=== PATIENT | male | born 1940 | race Caucasian/White ===

== ENCOUNTER 2020-05-21 09:14 | Emergency (ER) | payer OTHER, SELFPAY ==
[2020-05-21] VITALS (47 sets, daily range): BP systolic 153–182; BP diastolic 69–126; PULSE 63–105; RESP 13–34; TEMP 37.1; O2SAT 90–98
--- NOTE | 2020-05-21 09:15 | DI.RAD_ITS ---
EXAM: XR CHEST 2V PA LATERAL CLINICAL HISTORY: possible cva, r'o acute disease. TECHNIQUE: 2D digital imaging was performed. COMPARISON: No exams were available for comparison FINDINGS: Heart size is upper normal. The mediastinum is not widened. There is density in left upper lobe region, either nodule or possibly related to the anterior aspect of the 1st rib. This can be further evaluated with apical lordotic view or CT scan. This measures a pproximately 2.5 x 2.0 cm. In the opposite-right lung there is some fullness in the right infrahilar region. No pleural effusio ns. IMPRESSION: Abnormal bilateral findings. Recommend nonportable PA and lateral views when clinically possible or chest CT scan. DATA REPOSITORY: RADIATION DOSE DELIVERED:
--- NOTE | 2020-05-21 09:15 | DI.CT_ITS ---
EXAM: CT HEAD WO CLINICAL HISTORY: slurred speech, L sided weakness, r/o acute cva. TECHNIQUE: Imaging Protocol: Axial computed tomography images with coronal and sagittal reformatted images were created and reviewed COMPARISON: CT HEAD WITHOUT CONTRAST from 03/26/2010 FINDINGS: There are no skull fractures nor fluid in the visualized paranasal sinuses. There is no evidence of intracranial hemorrhage, mass effect, or shift of midline structures. There are no extra-axial fluid collections. The ventricles are not enlarged or shifted and there is no blo od within the ventricular system nor within the basal cisterns. When compared to the 2011 study there is increased white matter hypodensity around the posterior aspe ct of the right lateral ventricle, possibly significant.. There is some periventricular hypodensity around the frontal horns of both lateral ventricles which was previously present. There is some calcification noted in the right vertebral artery at the skull base. Also mild calcifi cation with noted within the intracavernous internal carotid arteries. Small fluid level is noted in the left maxillary sinus. IMPRESSION: Compared to 2011 there is increased white matter hypodensity around the atria of the right lateral ve ntricle, most probably post ischemic, age indeterminate. Recommend follow-up MRI. Mild vascular calcifications described above. Findings and recommendations discussed with ER provider. RADIATION DOSE DELIVERED: 779.68mGy.cm Total DLP DATA REPOSITORY: All CT scans at this facility are submitted to the National Radiology Data Registry (NRDR) Dose Index Registry (DIR) with the [employer] ([employer]). RADIATION OPTIMIZATION: All CT scans at this facility use at least one of these dose optimization te chniques: automated exposure control; mA and/or kV adjustment per patient size (includes targeted exa ms where dose is matched to clinical indication); or iterative reconstruction.
--- NOTE | 2020-05-21 09:15 | RT.EKG_ITS ---
APPROVED REPORT Exam: Resting ECG Patient Location: E HR:85 bpm ECG Measurements Heart Rate 85 AXIS NH 259 P 68 QRSd 104 QRS 14 QT 375 T 207 QTc 447 Conclusion Sinus rhythm...normal P axis, V-rate 60- 99 Prolonged NH interval...NH >220, V-rate 50- 90 Anterior infarct, old...Q >40mS, abnormal ST-T, V2-V5. Less than 1mm ST depression in aVL. 1mm ST depression in I, II, V4,V6. 2mm ST depression in V5. LBBB. No STEMI. I have reviewed and interpreted ECG and agree with software generated interpretation.
--- NOTE | 2020-05-21 09:16 | ED.GENADUL_ITS ---
Discharge Plan Disposition Patient Disposition: [facility] Condition: Stable Discharge Details Clinical Impression: Acute cerebrovascular accident, Elevated troponin Primary Care Provider: [facility],[place] ED Provider: Montserrat Rodgers Home Meds and New Rx's Prescriptions: No Action potassium chloride 10 mEq Capsule, Extended Release 20 meq PO DAILY RF: 0 atorvastatin [Lipitor] 20 mg Tablet 20 mg PO DAILY RF: 0 chlorthalidone 25 mg Tablet 25 mg PO DAILY RF: 0 aspirin [Aspir-81] 81 mg Tablet,Delayed Release (Dr/Ec) 81 mg PO DAILY RF: 0 omeprazole [Prilosec] 20 mg Capsule,Delayed Release(Dr/Ec) 20 mg PO DAILY RF: 0 vitamin B complex [Super B Complex] Capsule 1 cap PO DAILY RF: 0 Fish Oil Capsule 1,000 mg PO DAILY RF: 0 Vitamin D (with calcium) 77-400 mg-unit Tablet 1 tab PO DAILY RF: 0 Discharge Data Discharge Date/Time-TO BE ENTERED AT DEPARTURE: 05/21/20 15:52 Medical Decision Making 0935 -- 79-year-old male with a history of colon cancer in remission, hypertension, hyperlipidemia presents from home after slurred speech and left arm since yesterday, with fall off couch today. Patient arrived to the ED as a potential stroke. Patient oriented to person and place, fall at 2000. Able to answer questions and follow commands. Airway intact. Patient evaluated in the camacho with left pronator drift and weakness of left upper extremity. No observable lower extremity weakness. No facial droop noted. Patient sent directly to CT. 1000 --CT head read notes compared to 2010 there is increased white matter hypodensity around the atria the right lateral ventricle, most probably postischemic, age-indeterminate, recommend follow-up on MRI. Discussed with Dr. Benjamin who recommends obtaining an MRI at this time. Recommends MRI and MRA brain without contrast. Labs reviewed. Normal white blood cell count. Troponin 0.13. EKG notes [address] depression in 1, 2, V4, V6. Less than [address] depression in aVL. [address] depression in V5. No STEMI. Discussed with [facility] cardiology who did not feel that this was an STEMI at this time as patient does not endorse any chest pain or shortness of breath. Agrees with aspirin and recommends giving Lipitor and repeat troponin and EKG. No recommendation for heparin. I was able to [facility] [address] depressions in anterolateral leads. MRI/MRA note right internal carotid artery is occluded and flow signal is evident in the right middle cerebral artery. [facility] neurology paged for transfer. Case discussed with [facility] neurology who accepts patient for transfer. Accepting physician Dr. James. No other acute recommendations at this time. Repeat EKG read as ST elevation in anterior leads. This does not appear significantly different from first EKG and I do not think this is a STEMI. Repeat troponin is uptrending at 0.55. Pt remains chest pain free. D/w [facility] cardiology and no other acute recommendations at this time. Still no recommendation for heparin at this time. Will likely be consulted by [facility] neurology for evaluation once he is transferred to [facility]. They will consider echocardiogram once patient arrives. Chest x-ray also noted density in the left upper lobe either nodule or possibly elated to the first rib, and fullness in the right infrahilar region, recommend CT chest. CT chest notes: IMPRESSION: 1. No evidence of mass in the left upper lobe. The finding on chest x-ray corresponds to a prominent costochondral junction of the 1st rib. No ominous pulmonary nodules evident. 2. Also no abnormal mass in the right infrahilar region. Findings chest x-ray corresponds to vessels. 3. There are bilateral benign-appearing sessile calcified pleural plaques noted. No destructive pleural masses. No pleural effusions. No significant osseous lesions. 1525 -- Case endorsed to Dr. Koroma to follow-up on repeat troponin and EKG. Repeat troponin uptrending to 0.84. Repeat EKG noted what appeared to be worsening depression in V4 through V6 but these appear to be PVCs. No STEMI. Patient still awaiting bed confirmation. Discussed with Dr. Koroma - will get patient to [facility] [place]. Medical Records Medical records reviewed: Yes I reviewed the patient's medical records. Imaging Data Radiologic Study: Radiologist's impression: CT HEAD WO CLINICAL HISTORY: slurred speech, L sided weakness, r/o acute cva. TECHNIQUE: Imaging Protocol: Axial computed tomography images with coronal and sagittal reformatted images were created and reviewed COMPARISON: CT HEAD WITHOUT CONTRAST from 03/26/2010 FINDINGS: There are no skull fractures nor fluid in the visualized paranasal sinuses. There is no evidence of intracranial hemorrhage, mass effect, or shift of midline structures. There are no extra-axial fluid collections. The ventricles are not enlarged or shifted and there is no blood within the ventricular system nor within the basal cisterns. When compared to the 2011 study there is increased white matter hypodensity around the posterior aspect of the right lateral ventricle, possibly significant.. There is some periventricular hypodensity around the frontal horns of both lateral ventricles which was previously present. There is some calcification noted in the right vertebral artery at the skull base. Also mild calcification with noted within the intracavernous internal carotid arteries. Small fluid level is noted in the left maxillary sinus. IMPRESSION: Compared to 2011 there is increased white matter hypodensity around the atria of the right lateral ventricle, most probably post ischemic, age indeterminate. Recommend follow-up MRI. Mild vascular calcifications described above. XR CHEST 2V PA LATERAL CLINICAL HISTORY: possible cva, r'o acute disease. TECHNIQUE: 2D digital imaging was performed. COMPARISON: No exams were available for comparison FINDINGS: Heart size is upper normal. The mediastinum is not widened. There is density in left upper lobe region, either nodule or possibly related to the anterior aspect of the 1st rib. This can be further evaluated with apical lordotic view or CT scan. This measures approximately 2.5 x 2.0 cm. In the opposite-right lung there is some fullness in the right infrahilar region. No pleural effusions. IMPRESSION: Abnormal bilateral findings. Recommend nonportable PA and lateral views when clinically possible or chest CT scan. CT CHEST WO CLINICAL HISTORY: nodule MAGALY, fullness R infrahilar region, assess. TECHNIQUE: Multi planar reconstructions were performed. CONTRAST MATERIAL: None COMPARISON: CR XR CHEST 2V PA LATERAL from 05/21/2020 FINDINGS: CHEST: LUNGS: In the left upper lobe region the mass described on the chest x-ray corresponds to an exuberant costochondral junction of the 1st rib. There is no significant mass at this level. There is partially calcified benign-appearing sessile plaque noted bilaterally. There are no confluent pulmonary infiltrates nor pleural effusions. No significant focal findings in the trachea and mainstem bronchi. There is no bronchiectasis. MEDIASTINUM: There is no obvious hilar nor mediastinal adenopathy. Visualized thyroid unremarkable. CARDIAC: Heart size is normal. There is no pericardial effusion.Caliber of the thoracic aorta is within normal limits. VISUALIZED UPPER ABDOMEN:There are no significant adrenal masses. Will parape lvic cysts in left kidney. Mildly atrophic right kidney. Cholelithiasis noted. OSSEOUS: No acute fractures. There are multiple healed right-sided rib fractures.No significant osseous lesions.. IMPRESSION: 1. No evidence of mass in the left upper lobe. The finding on chest x-ray corresponds to a prominent costochondral junction of the 1st rib. No ominous pulmonary nodules evident. 2. Also no abnormal mass in the right infrahilar region. Findings chest x-ray corresponds to vessels. 3. There are bilateral benign-appearing sessile calcified pleural plaques noted. No destructive pleural masses. No pleural effusions. No significant osseous lesions. Lab Data Lab results reviewed: Yes I reviewed the patient's lab results. Labs: Laboratory Tests Range/Units 05/21/20 05/21/20 05/21/20 09:38 09:38 09:38 WBC (4.4-10.8) 10^3/uL 8.98 RBC (4.36-5.78) 10^6/uL 4.29 L Hgb (13.5-17.5) g/dL 14.3 Hct (40.0-50.0) % 41.3 MCV (80-95) fL 96.3 H MCH (27.0-33.0) pg 33.3 H MCHC (32.0-36.0) % 34.6 RDW (11.8-14.1) % 11.9 Plt Count (130-400) 10^3/uL 172 MPV (8.0-11.0) fL 10.9 Immature Gran % 0.3 Neutrophils % 77.8 Lymphocytes % 13.0 Monocytes % 7.8 Eosinophils % 0.8 Basophils % 0.3 Nucleated RBC % % 0 Absolute Neutrophils (1.2-6.7) 10^3/uL 6.98 H Absolute Lymphocytes (1.2-3.4) 10^3/uL 1.17 L Absolute Monocytes (0.1-0.8) 10^3/uL 0.70 Absolute Eosinophils (0.0-0.7) 10^3/uL 0.07 Absolute Basophils (0.0-0.2) 10^3/uL 0.03 PT (9.3-11.0) sec 10.6 INR (0.9-1.1) 1.1 APTT (21.0-27.5) sec 22.8 Sodium (136-145) mmol/L 141 Potassium (3.5-5.1) mmol/L 3.5 Chloride (98-107) mmol/L 104 Carbon Dioxide (21.0-32.0) mmol/L 28.0 Anion Gap (3-11) mmol/L 9.0 BUN (7-18) mg/dL 19 H Creatinine (0.70-1.30) mg/dL 1.2 Estimated GFR/1.73 m2 (mL/min/1.73m2) 58.11 Glucose (74-106) mg/dL 111 H Calcium (8.5-10.1) mg/dL 9.5 Magnesium (1.8-2.4) mg/dL 1.8 Total Bilirubin (0.2-1.0) mg/dL 0.6 AST (15-37) U/L 22 ALT (16-63) U/L 29 Alkaline Phosphatase (46-116) U/L 79 Troponin I (<0.06) ng/mL 0.13 H* Total Protein (6.4-8.2) g/dL 7.8 Albumin (3.4-5.0) g/dL 3.9 Urine Color (Yellow) Urine Clarity (Clear) Urine pH (5-8) Ur Specific [place] (1.005-1.025) Urine Protein (Negative) mg/dL Urine Ketones (Negative) mg/dL Urine Blood (Negative) Urine Nitrite (Negative) Urine Bilirubin (Negative) Urine Urobilinogen (Up TO 0.2) EU/dL Ur Leukocyte Esterase (Negative) Urine Glucose (Negative) mg/dL Range/Units 05/21/20 05/21/20 05/21/20 11:00 12:33 15:31 WBC (4.4-10.8) 10^3/uL RBC (4.36-5.78) 10^6/uL Hgb (13.5-17.5) g/dL Hct (40.0-50.0) % MCV (80-95) fL MCH (27.0-33.0) pg MCHC (32.0-36.0) % RDW (11.8-14.1) % Plt Count (130-400) 10^3/uL MPV (8.0-11.0) fL Immature Gran % Neutrophils % Lymphocytes % Monocytes % Eosinophils % Basophils % Nucleated RBC % % Absolute Neutrophils (1.2-6.7) 10^3/uL Absolute Lymphocytes (1.2-3.4) 10^3/uL Absolute Monocytes (0.1-0.8) 10^3/uL Absolute Eosinophils (0.0-0.7) 10^3/uL Absolute Basophils (0.0-0.2) 10^3/uL PT (9.3-11.0) sec INR (0.9-1.1) APTT (21.0-27.5) sec Sodium (136-145) mmol/L Potassium (3.5-5.1) mmol/L Chloride (98-107) mmol/L Carbon Dioxide (21.0-32.0) mmol/L Anion Gap (3-11) mmol/L BUN (7-18) mg/dL Creatinine (0.70-1.30) mg/dL Estimated GFR/1.73 m2 (mL/min/1.73m2) Glucose (74-106) mg/dL Calcium (8.5-10.1) mg/dL Magnesium (1.8-2.4) mg/dL Total Bilirubin (0.2-1.0) mg/dL AST (15-37) U/L ALT (16-63) U/L Alkaline Phosphatase (46-116) U/L Troponin I (<0.06) ng/mL 0.55 H* 0.84 H* Total Protein (6.4-8.2) g/dL Albumin (3.4-5.0) g/dL Urine Color (Yellow) Yellow Urine Clarity (Clear) Clear Urine pH (5-8) 6.5 Ur Specific [place] (1.005-1.025) 1.025 Urine Protein (Negative) mg/dL Negative Urine Ketones (Negative) mg/dL Negative Urine Blood (Negative) Negative Urine Nitrite (Negative) Negative Urine Bilirubin (Negative) Negative Urine Urobilinogen (Up TO 0.2) EU/dL 0.2 Ur Leukocyte Esterase (Negative) Negative Urine Glucose (Negative) mg/dL Negative ECG Data Attestation: I personally reviewed and interpreted this ECG (s) as follows: Interpretation: Rate of 85, sinus, left bundle branch block. Less than [address] depression in aVL. [address] depression in 1, 2, V4 to V6. [address] depression in V5. No STEMI. MN 259. QRS 104. QTc 447. No old EKG to compare. Rate of 71, sinus, less than [address] depression in 1, 2, aVL, V4 through V6. Do not feel that there are findings consistent with STEMI. MN 259. QRS 104. QTc 447. HPI General Mode of arrival: EMS . Date/Time Provider Initiated Documentation: 05/21/20 09:15 . Limitations to Documentation: physical limitation . Information obtained by: patient and EMS . HPI Narrative: Patient is an 79-year-old male with a history of colon cancer treated with resection and chemotherapy 5 years ago now with remission, hypertension, hyperlipidemia who presents with dizziness for the past 2 days, slurred speech and left-sided weakness since yesterday and fall out of couch this morning. Patient states he has felt off balance with walking for the past 2 days. Patient and confirms that he awoke yesterday morning with slurred speech and left arm weakness. states she is unsure if this improved but he appeared to worsen last evening. Patient states that he went to bed all night and awoke this morning to use the bathroom and rolled out of bed. He states he then walked to the bathroom and then laid himself down the couch to sleep. Patient states he fell getting out of the couch onto his left elbow and left knee. Patient denies any head injury, pain in his extremities, neck or back pain. Patient states he was able to crawl to the bathroom and then then remained there because he was too weak. He states his son then checked on him and called 911. EMS states that upon their arrival patient was sitting on the toilet and required 2 people to assist him to the stretcher as he appeared extremely weak. Patient last received a Covid shot 1 month ago. He is due for his second Covid shot tomorrow. states that patient was scheduled to get an echocardiogram at the [place] tomorrow. Patient denies any recent antibiotics, new medications. Related Data Home Medications Medication Instructions Recorded Confirmed aspirin [Aspir-81] 81 mg PO DAILY 05/21/20 05/21/20 atorvastatin [Lipitor] 20 mg PO DAILY 05/21/20 05/21/20 calcium phos,dibas-vitamin D3 1 tab PO DAILY 05/21/20 05/21/20 [Vitamin D (with calcium)] chlorthalidone 25 mg PO DAILY 05/21/20 05/21/20 omega-3 fatty acids [Fish Oil] 1,000 mg PO DAILY 05/21/20 05/21/20 omeprazole [Prilosec] 20 mg PO DAILY 05/21/20 05/21/20 potassium chloride 20 meq PO DAILY 05/21/20 05/21/20 vitamin B complex [Super B Complex] 1 cap PO DAILY 05/21/20 05/21/20 Allergies Allergy/AdvReac Type Severity Reaction Status Date / Time No Known Allergies Allergy Unverified 05/21/20 10:27 Review of Systems All systems reviewed & are unremarkable except as noted in HPI and below Constitutional Constitutional: Reports as per HPI, Denies chills and Denies fever(s) Eyes Eyes: Denies blurry vision ENT Ears, Nose, Mouth, and Throat: Denies dizziness, Denies sore throat and Denies throat swelling Cardiovascular Cardiovascular: Denies chest pain and Denies dyspnea Respiratory Respiratory: Denies cough and Denies dyspnea Gastrointestinal Gastrointestinal: Denies abdominal pain, Denies diarrhea and Denies vomiting Genitourinary Genitourinary: Denies hematuria and Denies dysuria Musculoskeletal Musculoskeletal: Denies back pain and Denies numbness Integumentary/Breasts Skin/Breast: Denies lesions and Denies rash Neurologic Neurologic: Denies dizziness, Reports localized weakness and Denies numbness Allergic/Immunologic Allergic/Immunologic: Denies throat swelling [facility] Medical History (Updated 05/21/20 @ 13:40 by Montserrat Rodgers DO) Abdominal aortic aneurysm Aortic stenosis Colon cancer HTN (hypertension) Hx of hyperlipidemia Pulmonary hypertension Surgical History (Updated 05/21/20 @ 10:29 by Montserrat Rodgers DO) History of hernia repair History of right hemicolectomy Social History Smoking/Tobacco Use Status: Never Smoking risk assessment performed?: Yes Alcohol Intake: never Drug use: Never Substance use type: does not use Do you feel safe at home: Yes Do you feel safe in your relationship?: Yes Exam Const General: cooperative, healthy appearing and no acute distress HENPR Head: normal to inspection Face and sinus: normal facial exam Eyes General: appearance normal, both eyes and all related structures Pupils: PERRL EOM: EOM intact bilaterally Neck Neck: normal visual inspection and No submandibular swelling Lymphatic: no lymphadenopathy noted Chest Chest: normal inspection of the chest and no tenderness Resp Effort & Inspection: normal respiratory effort and able to speak in complete sentences Auscultation: clear to auscultation bilaterally Cardio Rate: regular rate Rhythm: regular rhythm GI Inspection: normal to inspection Palpation: soft, not firm, not rigid and nontender Auscultation: normal bowel sounds Back/Spine/Pelvis Cervical Spine: No cervical spinal tenderness Thoracic/Lumbar Spine: No thoracic spinal tenderness and No lumbar spinal tenderness Skin General skin exam: no rashes or lesions noted Neuro General: patient alert, patient awake and oriented (not time, states 2000) Patient Orientation: Person and Place Cognition: normal cognition Speech: speech normal Motor: strength 5/5 throughout (b/l lower extremities) and pronator drift pronator drift of left upper extremity Sensory Exam: no sensory deficits noted Extrem General: capillary refill normal, no calf tenderness bilaterally and no edema Other: Multiple round superficial abrasions to the left posterior elbow. No deformity. No pain with range of motion. Superficial abrasions to left anterior knee. No pain with range of motion or palpation. No deformity. Normal range of motion at shoulders, hips wrists, ankles bilaterally without pain or deformity. No tenderness to palpation of ankles or feet. Psych Appearance: grossly normal Mental Status: mental status grossly normal Speech and Movement: speech and movement normal Affect: normal affect
[2020-05-21 09:48] LABS: Abs Immature Grans 0.03 10^3/uL (0.0-0.06); Absolute Basophil Count 0.03 10^3/uL (0.0-0.2); Absolute Eosinophil Count 0.07 10^3/uL (0.0-0.7); Absolute Lymphocyte Count 1.17 10^3/uL (1.2-3.4); Absolute Neutrophil Count 6.98 10^3/uL (1.2-6.7); Basophils % 0.3; Eosinophils % 0.8; HCT 41.3 % (40.0-50.0); HGB 14.3 g/dL (13.5-17.5); Immature Grans % 0.3; MCH 33.3 pg (27.0-33.0); MCHC 34.6 % (32.0-36.0); MCV 96.3 fL (80-95); MPV 10.9 fL (8.0-11.0); Monocytes % 7.8; Neutrophils % 77.8; Nucleated RBC 0 %; Platelet Count 172 10^3/uL (130-400); RBC 4.29 10^6/uL (4.36-5.78); RDW 11.9 % (11.8-14.1); WBC 8.98 10^3/uL (4.4-10.8)
[2020-05-21 09:59] LABS: INR 1.1 (0.9-1.1); PTT Activated 22.8 sec (21.0-27.5); Prothrombin Time 10.6 sec (9.3-11.0)
[2020-05-21] MEDS: Aspirin 325 MG TAB PO (10:00)
--- NOTE | 2020-05-21 10:00 | DI.MRI_ITS ---
EXAM: MRI brain without IV contrast CLINICAL HISTORY: L arm weakness, slurred speech, r/o cva TECHNIQUE: Multiplanar multisequence MRI of the brain was performed. COMPARISON: CT scan from earlier today was reviewed. FINDINGS: CEREBRAL PARENCHYMA: No evidence of intracranial hemorrhage, mass effect nor shift of midline structu res. No extraaxial fluid collections. Ventricles are not enlarged nor shifted. There is no abnormal signal in the cerebellar hemispheres nor within the north and midbrain and thalam i. There is abundant bilateral periventricular white matter signal abnormality consistent with chronic s mall vessel disease. This is most prominent around the atrium of the right lateral ventricle, and co rresponds to what was described on the noninfused CT scan earlier today. There is multifocal signal abnormality on diffusion imaging evident in the territory of the right mid dle cerebral artery at and above the sylvian fissure region. There is also a punctate focus of signa l abnormality on diffusion imaging in right occipital parietal region. FLOW VOIDS: There is lack of flow void in the right internal carotid artery consistent with thromboti c occlusion of this vessel. Pituitary gland: Normal size. PARANASAL SINUSES: Small fluid level noted in the left maxillary sinus. Other paranasal sinuses are clear. ORBITS: No obvious findings. 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 Multiple foci of signal abnormality in the territory of the right middle cerebral artery evident on DWI consistent with acute territorial ischem ia. Given the appearance this may also be embolic. There also multiple foci of periventricular signal abnormality consistent with chronic small vessel d isease. There is no evidence of intracranial hemorrhage. Findings called to ER provider immediately following completion of the study 05/21/2020 DATA REPOSITORY: CT
--- NOTE | 2020-05-21 10:00 | DI.MRI_ITS ---
EXAM: MRA BRAIN WO CLINICAL HISTORY: slurred speech, L arm weakness, r/o acute cva TECHNIQUE: Brain MRI was performed on a 1.5 iqra unit with [id number] sequence. MRI and CT scan were reviewed COMPARISON: MR MR BRAIN WO from 05/21/2020 MR MR ANGIO BRAIN WO from 05/21/2020 MR MR BRAIN WO from 05/21/2020 FINDINGS: The main finding here is absence of flow signal in the right internal carotid artery within the skull base as well as cavernous sinus and supraclinoid aspect. Some flow signal is evident in the right mi ddle cerebral artery. The ipsilateral A1 segment also exhibits flow. The opposite-left internal carotid artery is patent in the skull base and carotid canal and the low i ntracavernous left internal carotid artery is patent. Left middle cerebral artery is patent. A1 segme nt is patent. Both anterior cerebral arteries are patent. There is no evidence of aneurysm at the lev el of the anterior communicating artery. Both vertebral arteries are patent at the skull base and both contribute to the formation of the beasley nt basilar artery. Distally the basilar artery gives off bilateral superior cerebellar arteries. Abov e this level the basilar artery terminates as patent bilateral posterior cerebral arteries. There is a posterior communicating artery on the right side of the [id number]. This exhibits luminal stacey meter of 1.5 millimeters IMPRESSION: 1. The right internal carotid artery is occluded. The left internal carotid artery is patent. 2. Flow signal is evident with in the right middle cerebral artery. 3. Posterior circulation is patent. There is a posterior communicating artery on the right side of th e [id number]-[id number]. This exhibits diameter 1.5 millimeters. DATA REPOSITORY:
[2020-05-21 10:05] LABS: ALT 29 U/L (16-63); AST 22 U/L (15-37); Albumin 3.9 g/dL (3.4-5.0); Alkaline Phosphatase 79 U/L (46-116); BUN 19 mg/dL (7-18); Bilirubin, Total 0.6 mg/dL (0.2-1.0); CREATININE 1.2 mg/dL (0.70-1.30); Calcium 9.5 mg/dL (8.5-10.1); Chloride 104 mmol/L (98-107); Estimated GFR 58.11 (mL/min/1.73m2); Glucose 111 mg/dL (74-106); Magnesium 1.8 mg/dL (1.8-2.4); Potassium 3.5 mmol/L (3.5-5.1); Sodium 141 mmol/L (136-145); Total Protein 7.8 g/dL (6.4-8.2)
[2020-05-21 10:09] LABS: Troponin I 0.13 ng/mL (<0.06)
[2020-05-21 11:06] LABS: Bilirubin Negative (Negative); Blood Negative (Negative); Clarity Clear (Clear); Glucose Negative (Negative); Ketones Negative (Negative); Leukocyte Esterase Negative (Negative); Nitrite Negative (Negative); Specific Gravity 1.025 (1.005-1.025); Urobilinogen 0.2 EU/dL (Up TO 0.2); pH 6.5 (5-8)
--- NOTE | 2020-05-21 11:15 | DI.MRI_ITS ---
EXAM: MR ANGIO NECK WO CLINICAL HISTORY: slurred speech, L arm weakness, r/o acute cva TECHNIQUE: Performed on a 1.5 iqra unit. No contrast. [id number]-am-[id number] sequence. COMPARISON: MRI and CT scan were reviewed. FINDINGS: The aortic arch anatomy is conventional. Both common carotid arteries are patent. 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 Right external carotid artery is patent Left carotid bulb and proximal left internal carotid artery exhibit plaque, somewhat difficult to brijesh ntify here. The left internal carotid artery is patent above this level in the neck. In the posterior circulation both vertebral arteries originate off the subclavian arteries and exhibi t normal luminal diameters in the foramen transverse area and both contribute to the formation of the basilar artery at the skull base. Posterior inferior cerebellar arteries originate off the vertebra l arteries at the skull base and appear patent. IMPRESSION: 1. 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 2. There is plaque at the left carotid bulb and proximal left internal carotid artery but without oc clusion. Difficult to estimate stenosis given motion artifact here. 3. Both vertebral arteries are patent. Findings discussed with ER provider following completion of the study 05/21/2020 DATA REPOSITORY:
--- NOTE | 2020-05-21 12:15 | RT.EKG_ITS ---
APPROVED REPORT Exam: Resting ECG Patient Location: E HR:71 bpm ECG Measurements Heart Rate 71 AXIS ND 217 P 51 QRSd 100 QRS 28 QT 406 T 27 QTc 442 Conclusion Sinus rhythm...normal P axis, V-rate 60- 99 Borderline prolonged ND interval...ND >212, V-rate 50- 90 Probable left ventricular hypertrophy...multiple LVH criteria ST elevation, consider anterior injury...ST >0.15mV, V1-V5. No STEIM. No change from previous. I have reviewed and interpreted ECG and agree with software generated interpretation.
[2020-05-21] MEDS: Atorvastatin 40 MG TAB PO (12:35)
--- NOTE | 2020-05-21 13:00 | DI.CT_ITS ---
EXAM: CT CHEST WO CLINICAL HISTORY: nodule MAGALY, fullness R infrahilar region, assess. TECHNIQUE: Multi planar reconstructions were performed. CONTRAST MATERIAL: None COMPARISON: CR XR CHEST 2V PA LATERAL from 05/21/2020 FINDINGS: CHEST: LUNGS: In the left upper lobe region the mass described on the chest x-ray corresponds to an exuberan t costochondral junction of the 1st rib. There is no significant mass at this level. There is parti ally calcified benign-appearing sessile plaque noted bilaterally. There are no confluent pulmonary i nfiltrates nor pleural effusions. No significant focal findings in the trachea and mainstem bronchi. There is no bronchiectasis. MEDIASTINUM: There is no obvious hilar nor mediastinal adenopathy. Visualized thyroid unremarkable. CARDIAC: Heart size is normal. There is no pericardial effusion.Caliber of the thoracic aorta is wit hin normal limits. VISUALIZED UPPER ABDOMEN:There are no significant adrenal masses. Will parapelvic cysts in left kidn ey. Mildly atrophic right kidney. Cholelithiasis noted. OSSEOUS: No acute fractures. There are multiple healed right-sided rib fractures.No significant osse ous lesions.. IMPRESSION: 1. No evidence of mass in the left upper lobe. The finding on chest x-ray corresponds to a prominent costochondral junction of the 1st rib. No ominous pulmonary nodules evident. 2. Also no abnormal mass in the right infrahilar region. Findings chest x-ray corresponds to vessels . 3. There are bilateral benign-appearing sessile calcified pleural plaques noted. No destructive pleu ral masses. No pleural effusions. No significant osseous lesions. RADIATION DOSE DELIVERED: 651.43mGy.cm Total DLP DATA REPOSITORY: All CT scans at this facility are submitted to the National Radiology Data Registry (NRDR) Dose Index Registry (DIR) with the [employer] ([employer]). RADIATION OPTIMIZATION: All CT scans at this facility use at least one of these dose optimization te chniques: automated exposure control; mA and/or kV adjustment per patient size (includes targeted exa ms where dose is matched to clinical indication); or iterative reconstruction.
[2020-05-21 13:08] LABS: Troponin I 0.55 ng/mL (<0.06)
--- NOTE | 2020-05-21 15:00 | RT.EKG_ITS ---
APPROVED REPORT Exam: Resting ECG Patient Location: E HR:84 bpm ECG Measurements Heart Rate 84 AXIS SD 191 P 81 QRSd 104 QRS 32 QT 392 T 30 QTc 459 Conclusion Sinus rhythm...normal P axis, V-rate 60- 99 Ventricular premature complex...V complex w/ short R-R interval Probable LVH with secondary repol abnrm...multiple LVH criteria PVCs. Appears like PVCs in V4-6 and not new 3mm ST depression as there is also noted less than 1mm ST depre ssion in V4 and V6 and 1mm ST depression in V5. No STEMI. I have reviewed and interpreted ECG and agree with software generated interpretation.
[2020-05-21 16:18] LABS: Troponin I 0.84 ng/mL (<0.06)
== END 2020-05-21 15:52 | disposition short-term general hospital (02) ==
PROVIDERS: Emergency Provider Physician Assistant
DX: I63.231 Cerebral infarction due to unspecified occlusion or stenosis of right carotid arteries (principal); R47.81 Slurred speech; G83.24 Monoplegia of upper limb affecting left nondominant side; R77.8 Other specified abnormalities of plasma proteins; R91.8 Other nonspecific abnormal finding of lung field
CPT/HCPCS: 70544; 70547; 71250; 80053; 93005; 99285; 70450; 70551; 71046; 81003; 83735; 84484; 85025; 85610; 85730; 93010